=== PATIENT | male | born 1960 | race Two or more races ===

== ENCOUNTER 2016-12-12 11:26 | Emergency (ER) | payer BC ==
[~2016-12-12] VITALS: Ht 175.3 cm; Wt 81.6 kg
[2016-12-12 11:44] VITALS: BP 126/81
[2016-12-12] MEDS ORDERED: TDAP [DIPH/PERTUSSIS/TET] 0.5 ML VIAL IM ONE ×2 (11:57→12:00)
[2016-12-12] MEDS ORDERED: LIDOCAINE 1%-EPI 1:100,000 20 ML VIAL TP ONE (12:00)
--- NOTE | 2016-12-12 12:01 | NUR ---
XRAY AT BEDSIDE
== END 2016-12-12 12:49 | disposition home or self-care (01) ==
LOC: ER 11:28
DX: S91.311A Laceration without foreign body, right foot, initial encounter (principal); S90.31XA Contusion of right foot, initial encounter; W20.8XXA Other cause of strike by thrown, projected or falling object, initial encounter; Y93.89 Activity, other specified; Y92.89 Other specified places as the place of occurrence of the external cause; Y99.8 Other external cause status
CPT/HCPCS: 73630-TC; 90715; A4606; A6403; Z7610

== ENCOUNTER 2021-09-17 19:45 | Emergency (ER) | payer BC ==
[~2021-09-17] VITALS: Ht 180.3 cm; Wt 81.6 kg
[2021-09-17 19:56] VITALS: BP 138/100
--- NOTE | 2021-09-17 21:34 | NUR ---
Patient discharged to home in stable condition. Written and verbal after care instructions given. Patient verbalizes understanding of instruction.
== END 2021-09-17 21:44 | disposition home or self-care (01) ==
LOC: ER 19:47
DX: R20.2 Paresthesia of skin (principal)
CPT/HCPCS: 70450-TC; 72125-TC